=== PATIENT | female | born 1950 | race Caucasian/White ===

== ENCOUNTER → 2016-11-12 | Outpatient (CLI) | payer MEDICARE ==
[~2016-11-12] MED LIST: ACETAMINOPHEN PO; AMBIEN; ANUSOL-HC SUPP25 M1 PR; AUGMENTIN PO; BENZONATATE PO; DARVOCET-N 1001 TAB; DARVOCET-N 1001 TAB PO; FAMOTIDINE; FAMOTIDINE PO; FEOSOL PO; GABAPENTIN800 MG PO; HYDROCHLOROTHIA25 MG PO; LAMICTAL PO; LOPRESSOR PO; LORTAB 7.51 TAB PO; LOSARTAN POTAS100 MG PO; NEURONTIN PO; PEN-VEE K PO; PHENERGAN DM1 ML PO; PHENERGAN25 M1; PRILOSEC PO; PRILOSEC40 MG PO; SERTRALINE HCL100 MG PO; TOPROL XL 50 MG50 M1 PO; TOPROL XL PO; VICODIN 5/1 TAB 5/50 PO; WELLBUTRIN PO; WELLBUTRIN XL PO; ZOLOFT100 MG PO
--- NOTE | ~2016-11-12 | EKG ---
PATIENT: REYES GONZALEZ UNIT #: [id number] Ventricular Rate: 77 BPM Atrial Rate: 77 BPM P-R Interval: 160 ms QRS Duration: 62 ms Q-T Interval: 374 ms QTC Calculation(Bezet): 423 ms P [place]: 45 degrees Calculated R [place]: 15 degrees Calculated T [place]: 22 degrees Diagnosis Line: Normal sinus rhythm Diagnosis Line: Normal ECG Diagnosis Line: When compared with ECG of 07-OCT-2015 09:09, Diagnosis Line: No significant change was found Diagnosis Line: Confirmed by MUSTAPHA LAWSON MD ([id number]) on Diagnosis Line: 11/15/2016 9:36:34 PM INTERPRETING MD: RENNY POE
[2016-11-12 13:17] LABS: HEMATOCRIT 34.3 % (35.0-45.0); HEMOGLOBIN 10.8 gm/dL (12.0-16.0); MEAN CELL VOLUME 84.2 FL (83-96); MEAN CORPUSCULAR HEMOGLOBIN 26.6 PG (28-34); MEAN CORPUSCULAR HGB CONC 31.6 g/dL (30-36); MEAN PLATELET VOLUME 7.7 FL (6.5-11.5); RED BLOOD COUNT 4.07 X10e (3.90-5.30); RED CELL DISTRIBUTION WIDTH 16.3 % (11.0-15.5)
[2016-11-12 13:57] LABS: BUN/CREATININE RATIO 15.71; CALCIUM SERUM 9.3 mg/dL (8.4-10.2); CREATININE SERUM 0.7 mg/dL (0.6-1.4); GLOM FILT RATE Estimated 90.3 mL/min (>60); POTASSIUM 4.5 mmol/L (3.5-5.1)
== END | disposition home or self-care (01) ==
LOC: CAMB 12:59 → EDSTATUS 13:00 → CAMB 13:00
PROVIDERS: Orthopaedic Surgery
DX: Z01.818 Encounter for other preprocedural examination (principal); M70.22 Olecranon bursitis, left elbow
CPT/HCPCS: 36415; 80048; 85027; 93005

== ENCOUNTER → 2016-11-24 | Day surgery (SDC) | payer MEDICARE ==
--- NOTE | ~2016-11-24 | OR ---
Unit #: [id number] #: [id number] Patient: REYES GONZALEZ [id number] [address] [place], [place] [address] [id number] O MR#: [id number] NAME: REYES GONZALEZ. ROOM: Date of Procedure: 11/24/2016 Admission Date: 11/24/2016 Surgeon: Cuate Cade M.D. : 1950 Attending Physician: Cuate Cade M.D. Primary Care Physician: Glen Santana M.D. OPERATIVE REPORT PREOPERATIVE DIAGNOSIS Left elbow olecranon bursitis. POSTOPERATIVE DIAGNOSIS Left elbow olecranon bursitis. PROCEDURE PERFORMED Left elbow olecranon bursectomy. SECURITY SYSTEMS INTEGRATOR Amelia Ordaz. ANESTHESIA Regional with MAC anesthesia. ESTIMATED BLOOD LOSS Minimal. SPECIMENS Olecranon bursal tissue to Pathology. INDICATIONS FOR PROCEDURE Ms. 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 This area is increasingly tender to palpation. She would like this prominence over this area removed. We have discussed an olecranon bursectomy and she elected to proceed. DESCRIPTION OF PROCEDURE The patient was identified in the preoperative holding area. The operative site was marked. The patient was concerned about a general anesthetic and as such, we elected for a regional block with a MAC anesthesia. The left upper extremity was blocked by Anesthesia personnel. Preoperative antibiotics were not indicated. She was brought to the operating room and placed supine on the operating table. MAC anesthesia was administered. The left arm was prepped and draped in sterile fashion. A HemaClear tourniquet was used to exsanguinate the arm. An incision was made over the posterior aspect of the olecranon. Dissection was carried down through the subcutaneous tissues. The olecranon bursal tissue was identified. This was circumferentially dissected with a 15-blade knife. This was then freed from its underlying attachment to the proximal ulna. Unit #: [id number] #: [id number] Patient: REYES GONZALEZ This was then passed off the operative field for permanent pathology. Hemostasis was achieved with bipolar electrocautery. The wound was irrigated. The wound was then closed with 3-0 Vicryl and 3-0 nylon. DISPOSITION Stable to the recovery room. Dictated by... Osmar Herbert/rakesh TD: 11/25/2016 03:29 JOB #: [id number] OPERATIVE REPORT Page 1 of 1 X Cuate Cade MD X PROCEDURE OPERATIVE NOTE
== END | disposition home or self-care (01) ==
LOC: CSUR 05:47
DX: M70.22 Olecranon bursitis, left elbow (principal); I10 Essential (primary) hypertension; Z87.440 Personal history of urinary (tract) infections; Z88.8 Allergy status to other drugs, medicaments and biological substances; Z91.041 Radiographic dye allergy status; Z79.899 Other long term (current) drug therapy; Z98.51 Tubal ligation status; Z98.890 Other specified postprocedural states
CPT/HCPCS: 88305; J2250; J3010